=== PATIENT | female | born 1955 | race Caucasian/White ===

== ENCOUNTER 2017-01-03 09:48 | Observation (INO) | payer OTHER ==
[2016-12-30 18:15] LABS: BASOPHILS 1.1 %; BASOPHILS ABSOLUTE 0.07 10/3/uL (0.0-0.16); EOSINOPHILS 3.8 %; EOSINOPHILS ABSOLUTE 0.24 10/3/uL (0.0-0.53); HEMATOCRIT 38.4 % (36.0-48.0); HEMOGLOBIN 12.9 g/dL (12.0-16.0); IMMATURE GRANULOCYTES 0.3 %; IMMATURE GRANULOCYTES ABSOLUTE 0.02 10/3/uL (0.0-0.11); LYMPHOCYTES 48.3 %; LYMPHOCYTES ABSOLUTE 3.07 10/3/uL (0.67-4.30); MEAN CORPUS HGB CONC 33.6 g/dL (32.0-36.0); MEAN CORPUSCULAR HEMOGLOB 29.7 pg (26.0-34.0); MEAN CORPUSCULAR VOLUME 88.3 fL (80-100); MEAN PLATELET VOLUME 10.6 fL (9.2-13.0); MONOCYTES 5.5 %; MONOCYTES ABSOLUTE 0.35 10/3/uL (0.21-1.20); PLATELET COUNT 359 10/3/uL (150-400); RBC DISTRIBUTION WIDTH 12.9 % (12.0-16.0); RED CELL COUNT 4.35 10/6/uL (4.0-5.6); WHITE BLOOD CELLS 6.4 10/3/uL (4.5-10.5)
[2016-12-30 18:17] LABS: MANUAL DIFF NO %
[2016-12-30 18:39] LABS: A/G RATIO 1.2 (0.7-1.9); ALKALINE PHOSPHATASE 85 U/L (45-117); BUN (BLOOD UREA NITROGEN) 14 MG/DL (6-23); CALCIUM, SERUM 9.4 MG/DL (8.5-10.4); CHLORIDE, SERUM 106 MMOL/L (96-112); CO2 (CARBON DIOXIDE) 25 MMOL/L (24-34); CREATININE 0.84 MG/DL (0.55-1.02); GFR AFRICAN AMERICAN 88 ML/MIN (>=60); GFR NON AFRICAN AMERICAN 76 ML/MIN (>=60); GLOBULIN 3.3 G/DL (2.5-4.1); GLUCOSE, SERUM 101 MG/DL (60-99); POTASSIUM, SERUM 4.3 MMOL/L (3.5-5.3); SGOT(AST) 25 U/L (5-40); SGPT(ALT) 31 U/L (5-65); SODIUM, SERUM 141 MMOL/L (135-148); TOTAL BILIRUBIN 0.1 MG/DL (0-1.2); TOTAL PROTEIN 7.3 G/DL (6.0-8.5)
--- NOTE | ~2017-01-03 | OP ---
Record Of Operation [facility] [address] [place] [address] NAME: ASHKAN STEVE : 59 STATUS : ADM Yohannes PAT#: [id number] AGE: 61 ADM/REG DATE : 01/03/17 MR#: [id number] REPORT SERV DATE: 01/03/17 DICTATED BY: TERESA GOODMAN III DATE: 01/03/17 REPORT STATUS : Draft TRANSCRIBED BY: MODL DATE: 01/03/17 DATE OF PROCEDURE: 01/03/2017 PREOPERATIVE DIAGNOSIS: Symptomatic cholelithiasis and cholecystitis. POSTOPERATIVE DIAGNOSIS: Symptomatic cholelithiasis and cholecystitis, with severe cholecystitis. PROCEDURE: Laparoscopic cholecystectomy. SURGEON: Teresa Goodman M.D. ANESTHESIA: General with intubation. COMPLICATIONS: None. ESTIMATED BLOOD LOSS: Less than 30 mL. SPECIMENS: Gallbladder. DRAINS: None. LAP AND SPONGE COUNT: Correct x3. BRIEF HISTORY: This 61-year-old female presented with evidence for symptomatic cholelithiasis and cholecystitis. It was felt that laparoscopic cholecystectomy, possible DICTATION ENDS HERE Carey/KARLA Teresa Goodman III, M.D. / [id number] CC: Archie Ruth III
--- NOTE | ~2017-01-03 | OP ---
Record Of [facility] [address] [place]. [address] NAME: ASHKAN STEVE : 59 STATUS : ADM Yohannes PAT#: [id number] AGE: 61 ADM/REG DATE : 01/03/17 MR#: [id number] REPORT SERV DATE: 01/03/17 DICTATED BY: TERESA GOODMAN III DATE: 01/03/17 REPORT STATUS : Draft TRANSCRIBED BY: MODL DATE: 01/03/17 DATE OF PROCEDURE: 01/03/2017 PREOPERATIVE DIAGNOSIS: Symptomatic cholelithiasis and cholecystitis. POSTOPERATIVE DIAGNOSIS: Symptomatic cholelithiasis and cholecystitis, with severe cholecystitis. PROCEDURE: Laparoscopic cholecystectomy. SURGEON: Dr. Teresa Goodman. ANESTHESIA: General with intubation. COMPLICATIONS: None. ESTIMATED BLOOD LOSS: 30 mL. SPECIMENS: Gallbladder. DRAINS: None. LAP AND SPONGE COUNT: Correct x3. BRIEF HISTORY: This 61-year-old female presented with evidence for symptomatic cholelithiasis and cholecystitis. It was felt that laparoscopic cholecystectomy, possible laparotomy, was indicated. This procedure, the risks, benefits, and alternatives, including but not limited to the risk for bleeding, infection, common bile duct injury, bile leak, retained common bile duct stone, enterotomy, or injury to any abdominal structure with the definite possible need for laparotomy with possible persistence of her symptoms unrelieved by surgery, positive postoperative diarrhea or incisional hernia, and unforeseen complications including deep venous thrombosis, pulmonary embolus, myocardial infarction, stroke, pneumonia, and , were fully and completely explained to the patient at length prior to surgery. The fact that this was a major operation with risk for major morbidity and mortality and no guarantee for relief her symptoms were explained. The expected length of recovery of both open and laparoscopic procedures was explained. The patient had questions which were answered. She fully understood the risks and agreed to the surgery as planned. FINDINGS: The patient had evidence for severe gallbladder disease. The gallbladder was massively distended, inflamed, and thickened containing pus, all consistent with severe acute and chronic cholecystitis and cholelithiasis. There was some bleeding from the gallbladder bed, requiring placement of a Surgicel. This extended the length of the procedure by 100%. For this reason, modifier 22 was added to the procedure code. The patient will also be kept overnight for observation. Record Of [facility] [address] [place]. [address] NAME: ASHKAN STEVE : 59 STATUS : ADM Yohannes PAT#: [id number] AGE: 61 ADM/REG DATE : 01/03/17 MR#: [id number] REPORT SERV DATE: 01/03/17 DICTATED BY: TERESA GOODMAN III DATE: 01/03/17 REPORT STATUS : Draft TRANSCRIBED BY: MODL DATE: 01/03/17 PROCEDURE IN DETAIL: After being properly identified and after discussing the risks of surgery with the patient and family again in the preoperative area, she was taken to the operating room and placed in the supine position on the operating room table. General anesthesia was administered and she was intubated without difficulty. The abdomen was prepped and draped sterilely in the usual fashion. After an appropriate "time-out" per [employer] standards, a small transverse incision was made just below the umbilicus. The skin and fascia on either side was elevated with towel clips. A Veress needle was placed through the incision into the peritoneal cavity. Correct position of the needle and peritoneal cavity was confirmed by the hanging drop test. The abdominal cavity was insufflated to about 13 mmHg of carbon dioxide. The correct position of air in the peritoneal cavity was confirmed by palpation. The Veress needle was removed and replaced with a 10 mm trocar. The laparoscope was placed through this. The patient was placed in reverse Trendelenburg position and to her left. A second 10 mm trocar was placed just below the xiphoid process, to the right of falciform ligament, under direct vision with the laparoscope. Two 5 mm trocars were placed along the right subcostal margin, one in the mid axillary line and the other in the midclavicular line. These were also placed under direct vision using the laparoscope. The upper abdomen was inspected. The gallbladder appeared to be severely diseased. The gallbladder was very distended, very tight, and very inflamed. The gallbladder lerma were markedly thickened and inflamed, consistent with severe cholecystitis. There were adhesions between the gallbladder and the omentum also consistent with cholecystitis. The patient's liver was somewhat enlarged consistent with fatty liver disease. The upper abdomen was otherwise unremarkable as far as we could determine through the laparoscope. The appropriate instruments were placed through the trocars. The gallbladder was decompressed with a large needle and noted to contain higinio pus and bile. Using sharp dissection, the adhesions between the gallbladder and the omentum were then carefully divided. The gallbladder was then grasped and the infundibulum of the gallbladder was retracted laterally and inferiorly so as to expose the triangle of Calot. Using sharp dissection, the cystic duct was carefully and meticulously defined proximally and distally. The cystic duct was fairly long. The junction of the cystic duct with common bile duct was appreciated but was not skeletonized. The cystic artery was similarly defined proximally and distally. The fibrous and fatty tissue between these structures was divided so as to clearly identify the critical view of safety and the triangle of Calot. The lower portion of the gallbladder was dissected away from the liver plate so as to clearly identify the critical angle. Once these structures were clearly defined, the cystic duct was clipped with two clips on the common bile duct side and one on the gallbladder side, all placed as close to the gallbladder as possible, taking great care not to encroach upon or injure the common bile duct in any way. The cystic duct was then divided between these clips as close to the gallbladder as possible. We elected not to perform a cholangiogram because there was no preoperative or intraoperative evidence for biliary dilatation because the patient's preoperative liver enzymes were normal and because her biliary anatomy was clearly defined. The cystic artery was then similarly clipped and divided as close to the gallbladder as possible. Using the spatula and the cautery, the gallbladder was carefully dissected from the liver bed. The gallbladder lerma were markedly inflamed and thickened and vascular and for this reason, there was moderate bleeding from the gallbladder bed. The area was irrigated copiously with saline. Hemostasis was assured. Before the gallbladder was Record Of Operation [facility] [address] [place]. [address] NAME: ASHKAN STEVE : 59 STATUS : ADM Yohannes PAT#: [id number] AGE: 61 ADM/REG DATE : 01/03/17 MR#: [id number] REPORT SERV DATE: 01/03/17 DICTATED BY: TERESA GOODMAN III DATE: 01/03/17 REPORT STATUS : Draft TRANSCRIBED BY: MODL DATE: 01/03/17 completely removed, the gallbladder bed and portal areas were irrigated numerous times with saline. This process was repeated several times until hemostasis was meticulously and thoroughly assured in all areas. We were also certain that the clips were in good position and there was no extravasation of bile from any accessory bile ducts. Once this was assured, the gallbladder was completely dissected away from the liver and placed in an Endopouch. The liver bed was elevated, irrigated, and inspected for meticulous and thorough hemostasis and some Surgicel was placed in the gallbladder bed. At this time, the gallbladder and Endopouch were brought out through the infraumbilical incision after placing the laparoscope through the subxiphoid trocar. The fascia of the infraumbilical incision was closed with 0 Vicryl suture. The lateral 2 trocars were removed and these three lower trocar sites were inspected on the underside for hemostasis with the laparoscope. Once this was assured, subxiphoid trocar was removed under direct vision with a laparoscope to assure hemostasis in this incision. The fascia of this incision was closed with 0 Vicryl suture. The lateral two trocars were removed and these 3 lower trocar sites were inspected on the underside for hemostasis with the laparoscope. Once this was assured, subxiphoid trocar was removed under direct vision with the laparoscope. The air was removed from the peritoneal cavity through the skin incisions. The skin incisions were inspected for hemostasis and then closed with running subcuticular 4-0 Monocryl stitches. They were injected with 0.5% Marcaine. Dressings were applied. Anesthesia was reversed. The patient was taken to the recovery room in stable condition. She tolerated the procedure well. Her family was informed of the results of surgery. The patient will remain in the hospital for observation overnight to monitor her blood count and also for parental antibiotics due to the severity of her infection. RHJ/MODL Teresa Goodman III, M.D. / [id number] CC: Archie Ruth III
--- NOTE | ~2017-01-03 | PREOPHP ---
PreOp History and Physical [facility] [id number] [place]. [address] NAME: ASHKAN STEVE : 59 STATUS : PRE [facility]#: [id number] AGE: 61 ADM/REG DATE : MR#: [id number] REPORT SERV DATE: 01/01/17 DICTATED BY: TERESA GOODMAN III DATE: 12/25/16 REPORT STATUS : Draft TRANSCRIBED BY: MODL DATE: 12/25/16 HISTORY OF PRESENT ILLNESS: This 61-year-old female comes to the operating room for laparoscopic cholecystectomy, possible laparotomy, for symptomatic cholelithiasis and cholecystitis. The patient complains of a 3 to 4-week history of intermittent episodes of upper abdominal pain. This pain was associated with nausea. She has had several episodes of discrete biliary colic. The patient describes the pain as 10/10 when it occurs. The patient has gallstones. [place] to have symptomatic cholelithiasis and cholecystitis. The patient comes to the operating room now for laparoscopic cholecystectomy, possible laparotomy. PAST MEDICAL HISTORY: Essentially unremarkable. No history of diabetes, hypertension, cardiopulmonary disease. MEDICATIONS: Carafate, ropinirole, Zantac, calcium, fluoxetine, and alprazolam. ALLERGIES: NONE. PAST SURGICAL HISTORY: Status post ankle surgery. FAMILY HISTORY: History is positive for cancer, diabetes, and heart disease. SOCIAL HISTORY: The patient has a history of tobacco abuse. REVIEW OF SYSTEMS: The patient complains of weight gain, fever and chills. Her 14-point review of systems is otherwise unremarkable. OBJECTIVE: GENERAL: Obese female, in no acute distress. She is alert and oriented x3. VITAL SIGNS: Blood pressure 124/68, pulse 90, temperature 97.7. HEENT: Unremarkable. NEURO: Cranial nerves II through XII are normal. LUNGS: Clear. CARDIAC: Normal. ABDOMEN: Soft and nontender. EXTREMITIES: The patient has right foot with a boot in place due to a previous fracture. LABORATORY DATA: Gallbladder ultrasound confirms gallstones. ASSESSMENT: A 61-year-old female with symptomatic cholelithiasis and chronic cholecystitis and recurrent episodes of biliary colic. PLAN: The patient comes to the operating room now for laparoscopic cholecystectomy, possible laparotomy. This procedure, the risks, benefits, and alternatives, including but not limited to the risk for bleeding, infection, common bile duct injury, bile leak, retained common bile stone, enterotomy or injury to any abdominal structure, the definite possible need for laparotomy with possible persistence of her symptoms unrelieved by surgery, possibility of postoperative diarrhea or incisional hernia, and unforeseen complications PreOp History and Physical [address] [address] NAME: ASHKAN STEVE : 59 STATUS : PRE [facility] PAT#: [id number] AGE: 61 ADM/REG DATE : MR#: [id number] REPORT SERV DATE: 01/01/17 DICTATED BY: TERESA GOODMAN III DATE: 12/25/16 REPORT STATUS : Draft TRANSCRIBED BY: MODDuane DATE: 12/25/16 including deep venous thrombosis, pulmonary embolus, myocardial infarction, stroke, pneumonia and , have been fully and completely explained to the patient at length prior to surgery. The fact that this is a major operation with risk for major morbidity and mortality and no guarantee for relief of her symptoms has been explained to her. The expected length of recovery with open laparoscopic procedures has been explained. The patient had questions, which have been answered. She understands the risks and agrees to surgery as planned. KIEL/KARLA Teresa Goodman III, M.D. / [id number]
[~2017-01-03 09:48] MED LIST: CALTRAT600 PO; PROZAC PO; RANITIDINE300 MG PO; REQUIP5 PO; SUCR PO; VITAMIN D; X25 PO
[2017-01-03 17:24] LABS: HEMATOCRIT 38.1 % (36.0-48.0); HEMOGLOBIN 12.7 g/dL (12.0-16.0)
[2017-01-03 23:08] LABS: HEMATOCRIT 37.5 % (36.0-48.0); HEMOGLOBIN 12.5 g/dL (12.0-16.0)
[2017-01-04 07:02] LABS: BASOPHILS 0.1 %; BASOPHILS ABSOLUTE 0.01 10/3/uL (0.0-0.16); EOSINOPHILS 0 %; HEMATOCRIT 34.3 % (36.0-48.0); HEMOGLOBIN 11.6 g/dL (12.0-16.0); IMMATURE GRANULOCYTES 0.1 %; IMMATURE GRANULOCYTES ABSOLUTE 0.01 10/3/uL (0.0-0.11); LYMPHOCYTES 14.9 %; LYMPHOCYTES ABSOLUTE 1.13 10/3/uL (0.67-4.30); MEAN CORPUS HGB CONC 33.8 g/dL (32.0-36.0); MEAN CORPUSCULAR HEMOGLOB 29.6 pg (26.0-34.0); MEAN CORPUSCULAR VOLUME 87.5 fL (80-100); MEAN PLATELET VOLUME 10.5 fL (9.2-13.0); MONOCYTES 2.5 %; MONOCYTES ABSOLUTE 0.19 10/3/uL (0.21-1.20); NEUTROPHILS 82.4 %; NEUTROPHILS ABSOLUTE 6.24 10/3/uL (2.02-8.40); PLATELET COUNT 325 10/3/uL (150-400); RBC DISTRIBUTION WIDTH 13.2 % (12.0-16.0); RED CELL COUNT 3.92 10/6/uL (4.0-5.6); WHITE BLOOD CELLS 7.6 10/3/uL (4.5-10.5)
[2017-01-04 07:06] LABS: MANUAL DIFF NO %
[2017-01-04 07:16] LABS: ALBUMIN 3.2 G/DL (3.5-5.0); CALCIUM, SERUM 8.7 MG/DL (8.5-10.4); CHLORIDE, SERUM 104 MMOL/L (96-112); CO2 (CARBON DIOXIDE) 25 MMOL/L (24-34); GFR AFRICAN AMERICAN 94 ML/MIN (>=60); GFR NON AFRICAN AMERICAN 81 ML/MIN (>=60); GLOBULIN 3.2 G/DL (2.5-4.1); POTASSIUM, SERUM 4.6 MMOL/L (3.5-5.3); SGOT(AST) 61 U/L (5-40); SGPT(ALT) 64 U/L (5-65); SODIUM, SERUM 138 MMOL/L (135-148); TOTAL BILIRUBIN 0.3 MG/DL (0-1.2); TOTAL PROTEIN 6.4 G/DL (6.0-8.5)
[2017-01-04 07:17] LABS: ALKALINE PHOSPHATASE 65 U/L (45-117); BUN (BLOOD UREA NITROGEN) 9 MG/DL (6-23); GLUCOSE, SERUM 143 MG/DL (60-99)
[2017-01-04] MEDS ORDERED: PERCOCET 7.5/321 TAB PO (07:52)
[2017-01-04] MEDS ORDERED: LOM PO (07:52)
== END 2017-01-04 11:47 | disposition home or self-care (01) ==
LOC: SDC 09:48 → SDC/OF 14:39 → 5SO 16:11
PROVIDERS: Surgery
PROC: 0FT44ZZ Resection of Gallbladder, Percutaneous Endoscopic Approach (ICD-10-PCS; principal; 2017-01-03 11:30)
DX: K80.10 Calculus of gallbladder with chronic cholecystitis without obstruction (principal); Z88.5 Allergy status to narcotic agent; F41.9 Anxiety disorder, unspecified; Z79.899 Other long term (current) drug therapy; Z87.891 Personal history of nicotine dependence; E66.9 Obesity, unspecified; Z68.36 Body mass index [BMI] 36.0-36.9, adult; Z98.890 Other specified postprocedural states
CPT/HCPCS: 71020; 80053; 85014; 85018; 85025; 88304; 93005; 96374; 96375; 96376; A9270-GY; C1781; G0378; J0690; J1170; J2250; J2405; J2710; J3010